=== PATIENT | female | born 1975 | race Caucasian/White ===

== ENCOUNTER 2017-09-23 21:07 | Emergency (ER) | payer SELFPAY ==
[~2017-09-23] VITALS: Ht 175.3 cm; Wt 67.3 kg
[2017-09-23 22:44] LABS: HEMATOCRIT 39.2 % (36.0-46.0); HEMOGLOBIN 12.7 G/DL (11.9-15.5); MCH 27.3 PG (29.0-34.0); MCHC 32.4 G/DL (30.0-36.0); MCV 84.3 FL (83-99); PLATELET COUNT 196 K/uL (156-360); RBC DIS.WIDTH-CV 14.8 % (11.8-14.6); RBC DIS.WIDTH-SD 45.4 % (39-53); RED BLOOD COUNT 4.65 M/uL (3.80-5.20); WHITE BLOOD COUNT 13.5 K/uL (4.1-10.2)
[2017-09-23 23:02] LABS: ALBUMIN 4.1 g/dL (3.2-4.8); CHLORIDE 105 mEq/L (99-109); POTASSIUM 3.9 mEq/L (3.7-5.4); SODIUM 140 mEq/L (136-147)
[2017-09-23 23:04] LABS: GLUCOSE 102 mg/dL (70-99)
[2017-09-23 23:06] LABS: TOTAL BILIRUBIN 0.2 mg/dL (0.0-1.0)
[2017-09-23 23:08] LABS: CREATININE 0.8 mg/dL (0.6-1.3); GFR ESTIMATE (CALCULATED) > 59 mL/min/
[2017-09-23 23:09] LABS: ALKALINE PHOSPHATASE 129 IU/L (3-129)
[2017-09-23 23:10] LABS: AST (GOT) 14 IU/L (2-34); UREA NITROGEN (BUN) 8 mg/dL (9-23)
[2017-09-23 23:11] LABS: APPEARANCE SL.HAZY ((CLEAR)); BILIRUBIN NEGATIVE; BLOOD NEGATIVE; COLOR YELLOW ((YELLOW)); GLUCOSE (STRIP) NEGATIVE; KETONES NEGATIVE; LEUKOCYTES TRACE; NITRITE POSITIVE; PROTEIN (STRIP) NEGATIVE
[2017-09-23 23:11] LABS: SALICYLATE < 5.0 MG/DL (15-30)
[2017-09-23 23:12] LABS: ACETAMINOPHEN (TYLENOL) < 10 mcg/mL (10-30); ALT (GPT) 14 IU/L (3-49)
[2017-09-23 23:13] LABS: BACTERIA RARE /HPF; EPITHELIAL CELLS RARE /HPF; MUCUS 4+ /LPF; RED BLOOD CELLS 0-5 /HPF (0-5); UCUL ADDED? YES; WHITE BLOOD CELLS 15-20 /HPF (0-5)
[2017-09-23 23:17] LABS: QUANTITATIVE HCG < 4.0 MIU/ML
[2017-09-23 23:53] LABS: AMPHETAMINE NEGATIVE (500 ng/mL); BARBITURATES NEGATIVE (200 ng/mL); BENZODIAZEPINES NEGATIVE (150 ng/mL); BUPRENORPHINE NEGATIVE (10 ng/mL); COCAINE NEGATIVE (150 ng/mL); METHADONE NEGATIVE (200 ng/mL); METHAMPHETAMINE NEGATIVE (500 ng/mL); OPIATES (MORPHINE) NEGATIVE (100 ng/mL); OXYCODONE NEGATIVE (100 ng/mL); PHENCYCLIDINE NEGATIVE (25 ng/mL); PROPOXYPHENE NEGATIVE (300 ng/mL); THC CANNABINOIDS NEGATIVE (50 ng/mL); TRICYCLIC ANTIDEPRESSANTS NEGATIVE (300 ng/mL)
[2017-09-24] MEDS ORDERED: KEFLEX500 MG PO (00:19)
[2017-09-24 00:28] LABS: SOURCE SWAB
[2017-09-24 00:36] VITALS: BP 128/81
== END 2017-09-24 00:38 | disposition home or self-care (01) ==
LOC: EME 21:07
PROVIDERS: Physician Assistant
DX: N39.0 Urinary tract infection, site not specified (principal); F19.10 Other psychoactive substance abuse, uncomplicated; J45.909 Unspecified asthma, uncomplicated; F17.200 Nicotine dependence, unspecified, uncomplicated
CPT/HCPCS: 80053; 81003; 84702; 85027; 87077; 87086; 87186; 87210; 87491; 87591; 99281; 99285; G0480

== ENCOUNTER 2017-09-26 18:49 | Emergency (ER) | payer SELFPAY ==
[~2017-09-26] VITALS: Ht 175.3 cm; Wt 69.8 kg
[~2017-09-26 18:49] MED LIST: KEFLEX500 MG PO
[2017-09-26] MEDS ORDERED: ATARAX,VISTARIL50 MG PO (19:12)
[2017-09-26 19:50] VITALS: BP 165/98
== END 2017-09-26 19:58 | disposition home or self-care (01) ==
LOC: EME 18:49
DX: F41.9 Anxiety disorder, unspecified (principal); F19.10 Other psychoactive substance abuse, uncomplicated; G47.00 Insomnia, unspecified; J45.909 Unspecified asthma, uncomplicated; F17.210 Nicotine dependence, cigarettes, uncomplicated
CPT/HCPCS: 99281; 99284

== ENCOUNTER 2017-09-28 17:25 | Emergency (ER) | payer SELFPAY ==
[~2017-09-28] VITALS: Ht 175.3 cm; Wt 72.6 kg
[~2017-09-28 17:25] MED LIST changes: +ATARAX,VISTARIL50 MG PO
[2017-09-28 17:49] VITALS: BP 147/78
== END 2017-09-28 19:26 | disposition left against medical advice (07) ==
LOC: EXP 17:25 → EME 17:25 → EXP 19:26
DX: Z76.0 Encounter for issue of repeat prescription (principal); Z53.21 Procedure and treatment not carried out due to patient leaving prior to being seen by health care provider